=== PATIENT | male | born 1995 | race African-American/Black ===

== ENCOUNTER 2016-12-23 12:14 | Emergency (ER) | payer SELFPAY ==
[~2016-12-23] VITALS: Ht 182.9 cm; Wt 59.0 kg
[2016-12-23 12:16] VITALS: BP 155/98; PULSE 57; RESP 17; TEMP 98.2; O2SAT 98
== END 2016-12-23 14:26 | disposition left against medical advice (07) ==
LOC: NED 12:14
DX: S69.90XA Unspecified injury of unspecified wrist, hand and finger(s), initial encounter (principal); X58.XXXA Exposure to other specified factors, initial encounter
CPT/HCPCS: 99281

== ENCOUNTER 2017-02-01 14:13 | Emergency (ER) | payer SELFPAY ==
[~2017-02-01] VITALS: Ht 182.9 cm; Wt 61.5 kg
[2017-02-01 14:15] VITALS: BP 114/68; PULSE 101; RESP 12; TEMP 98.6; O2SAT 99
[2017-02-01] MEDS ORDERED: ONDANSETRON ODT 4 MG TAB PO ONE (14:45)
--- NOTE | 2017-02-01 14:46 | PD ---
HPI Chief Complaint: Abdominal Pain Time Seen by Provider: 14:32 Travel History International Travel<30 days: No Contact w/Intl Traveler<30days: No Traveled to known affect area: No History of Present Illness HPI 21-year-old male presents to the emergency department with complaint of nausea, vomiting, diarrhea that started at 2 AM this morning and subsided at approximately 9 AM this morning. Reports onset of epigastric abdominal pain while he was in the ER waiting room. Reports continued nausea. Describes abdominal pain as an ache. Rates at 5/10. No known relieving or aggravating factors. Has not taken any medication or drainage to alleviate symptoms. Denies fevers, dysuria, blood in his stool, urine or vomit. Denies significant past medical history. Does not have a primary care provider. No known allergies. No current medications. Has no other medical complaints. No other modifying factors or associated signs and symptoms. PFSH Social History Tobacco Use: No Allergies-Medications (Allergen,Severity, Reaction): Coded Allergies: No Known Allergies (Verified Allergy, Unknown, 12/23/16) Review of Systems Except as stated in HPI: all other systems reviewed are Neg Physical Exam Narrative GENERAL: Well-nourished, well-developed thin black male patient, in no acute distress; afebrile SKIN: Warm and dry. HEAD: Atraumatic. Normocephalic. EYES: Pupils equal and round. No scleral icterus. No injection or drainage. ENT: Mucosa pink and moist. Airway patent. NECK: Trachea midline. CARDIOVASCULAR: Regular rate and rhythm. No murmur appreciated. RESPIRATORY: No accessory muscle use. Clear to auscultation. Breath sounds equal bilaterally. GASTROINTESTINAL: Abdomen soft, tenderness on palpation to epigastric region, nondistended. Hepatic and splenic margins not palpable. Negative Matthews's sign Bowel sounds are active 4 quadrants. Nonrigid. No rebound tenderness. No guarding. MUSCULOSKELETAL: No obvious deformities. No clubbing. No cyanosis. No edema. NEUROLOGICAL: Awake and alert. Oriented 3. No obvious cranial nerve deficits. Motor grossly within normal limits. Normal speech. PSYCHIATRIC: Appropriate mood and affect; insight and judgment normal. Data Data Last Documented VS Vital Signs Date Time Temp Pulse Resp B/P (MAP) Pulse Ox O2 Delivery O2 Flow Rate FiO2 02/01/17 15:14 18 02/01/17 14:15 98.6 101 114/68 (83 99 Orders Orders Ondansetron Odt (Zofran Odt) (02/01/17 14:45) Ed Discharge Order (02/01/17 15:38) [facility] Medical Decision Making Medical Screen Exam Complete: Yes Emergency Medical Condition: Yes Medical Record Reviewed: Yes Differential Diagnosis Gastroenteritis, viral illness, gastritis Narrative Course 21-year-old male with vomiting and diarrhea that started at 2 AM this morning and resolved at approximately 9 AM this morning. Patient has epigastric abdominal tenderness on exam and his pain developed while in the ER waiting room. Patient is afebrile and nontoxic-appearing. Does not eat or drink anything since 9 AM this morning to see if he could tolerate it. Reports continued nausea. I spoke with Dr. Lemon, my attending physician, and he agrees with my plan of care. Zofran administered in the ER. Patient given Gatorade for by mouth challenge. 1539: On reexamination the patient has been able to tolerate Gatorade without continued nausea or vomiting. He denies abdominal pain at this time. Instructed patient to follow up with primary care provider. Patient verbalizes understanding and agreement with treatment plan. Patient is medically cleared and stable for discharge. Discussed reasons to return to the emergency department. Patient agrees with treatment plan. The patients vital signs are stable and the patient is stable for outpatient follow-up and treatment. Patient discharged home, stable and in no acute distress. Diagnosis Primary Impression: Gastroenteritis Referrals: [facility] Primary Care Physician Patient Instructions: Gastroenteritis (ED), General Instructions Departure Forms: Tests/Procedures, Work Release Enter return to work date: Feb 02, 2017 Additional Instructions: Increase fluid intake, starting with clear fluids; advancing to a bland diet as tolerated [place] diet to include crackers, rice, toast, bananas as tolerated, advancing slowly to regular diet Follow-up primary care provider in next 1-2 days Return to emergency department immediately with worsening of symptoms, particularly as discussed Med/Other Pt SpecificInfo: No Change to Meds, No Meds Exist/No RX given Disposition: 01 DISCHARGE HOME Condition: Stable Kizzy Almaraz Feb 01, 2017 14:46
== END 2017-02-01 15:48 | disposition home or self-care (01) ==
LOC: NEPD 14:13
DX: K52.9 Noninfective gastroenteritis and colitis, unspecified (principal); R10.13 Epigastric pain
CPT/HCPCS: 99282